=== PATIENT | female | born 1955 | race Caucasian/White ===

== ENCOUNTER 2023-04-17 08:57 | Day surgery (SDC) | payer MEDICARE, OTHER ==
[~2023-04-17] VITALS: Ht 160 cm; Wt 75.7 kg
[~2023-04-17 08:57] MED LIST: ALBU8.5H INH; AMLO1TAB24 PO; ATOR1TAB19 PO; BREO1INH3 INH; BSS IRRIG/VANCO(10MG)/TOBRA(5MG)/EPINEPH(1:1000-0.5CC)500ML BAG-ORONLY IR ONE; CYCLOPENTOLATE 1% OPHTH SOLN 2ML BTL OD SCH; LIDOCAINE 1% SDV 5ML VIAL As Ordered ONE; LIDOCAINE 3.5 % 1ML OPHTH TOPICAL GEL OU ONE; LISI10TA22 PO; MIDAZOLAM INJ 2MG/2ML VIAL As Ordered ONE; MONT10TA97 PO; OFLOXACIN 0.3 % (OCUFLOX) OPTH SOL 5ML OD ONE; PHENYLEPHRINE 10% OPHTH SOL 5ML OD PRN; PHENYLEPHRINE 2.5% OPHTH SOL 2ML OD SCH; TROPICAMIDE 1% OPHTH SOLN 15ML OD SCH; fentaNYL 100 MCG/2 ML INJECTION As Ordered ONE
[2023-04-17] MEDS ORDERED: CEFUROXIME 1MG/0.1ML INTRACAMERAL INJ As Ordered ONE (10:02)
[2023-04-17 10:40] VITALS: BP 142/71
== END 2023-04-17 10:55 | disposition home or self-care (01) ==
LOC: M SDC 08:57
PROVIDERS: ATTEND Ophthalmology
DX: H25.11 Age-related nuclear cataract, right eye (principal); I10 Essential (primary) hypertension; E78.5 Hyperlipidemia, unspecified; J45.909 Unspecified asthma, uncomplicated; I44.7 Left bundle-branch block, unspecified; Z79.51 Long term (current) use of inhaled steroids; Z79.899 Other long term (current) drug therapy; Z87.891 Personal history of nicotine dependence; Z88.0 Allergy status to penicillin
CPT/HCPCS: 66984; 92015; J0697; J2250; J3010; V2787

== ENCOUNTER 2023-05-01 09:41 | Day surgery (SDC) | payer MEDICARE ==
[~2023-05-01] VITALS: Ht 160 cm; Wt 76.7 kg
[~2023-05-01 09:41] MED LIST changes: -CYCLOPENTOLATE 1% OPHTH SOLN 2ML BTL OD SCH; +CYCLOPENTOLATE 1% OPHTH SOLN 2ML BTL OS SCH; -OFLOXACIN 0.3 % (OCUFLOX) OPTH SOL 5ML OD ONE; +OFLOXACIN 0.3 % (OCUFLOX) OPTH SOL 5ML OS ONE; -PHENYLEPHRINE 10% OPHTH SOL 5ML OD PRN; +PHENYLEPHRINE 10% OPHTH SOL 5ML OS PRN; -PHENYLEPHRINE 2.5% OPHTH SOL 2ML OD SCH; +PHENYLEPHRINE 2.5% OPHTH SOL 2ML OS SCH; -TROPICAMIDE 1% OPHTH SOLN 15ML OD SCH; +TROPICAMIDE 1% OPHTH SOLN 15ML OS SCH
[2023-05-01] MEDS ORDERED: CEFUROXIME 1MG/0.1ML INTRACAMERAL INJ As Ordered ONE (10:14)
[2023-05-01 12:57] VITALS: BP 151/74; TEMP 97.1; O2SAT 96
== END 2023-05-01 13:12 | disposition home or self-care (01) ==
LOC: M SDC 09:41
PROVIDERS: ATTEND Ophthalmology
DX: H25.12 Age-related nuclear cataract, left eye (principal); I10 Essential (primary) hypertension; E78.5 Hyperlipidemia, unspecified; J45.909 Unspecified asthma, uncomplicated; I44.7 Left bundle-branch block, unspecified; Z79.899 Other long term (current) drug therapy; Z79.51 Long term (current) use of inhaled steroids
CPT/HCPCS: 66984; 92015; J0697; J2250; J3010; V2788